=== PATIENT | male | born 1975 | race Caucasian/White ===

== ENCOUNTER 2017-03-29 09:18 | Emergency (ER) | payer MEDICAID ==
[2017-03-29 09:29] VITALS: TEMP 98.1; O2SAT 98
[2017-03-29] MEDS ORDERED: NS 1,000 ML IV ONE ×3 (09:45→11:48)
[2017-03-29] MEDS ORDERED: ONDANSETRON DISINTEGRATING 4 MG TAB PO ONE (09:45)
[2017-03-29] MEDS ORDERED: KETOROLAC 15 MG/1 ML SDV IVP ONE (09:46)
[2017-03-29 09:53] LABS: COLOR PALE YELLOW; LEUKOCYTE ESTERASE,URINE NEGATIVE (NEGATIVE); NITRITE,URINE NEGATIVE (NEGATIVE)
[2017-03-29 09:57] LABS: % IMMATURE GRANULYOCYTES 0.3 % (0.0-1.1); ABSOLUTE IMMATURE GRANULOCYTES 0.02 10^3/uL (0.00-0.10); ADD DIFF? NO; ADD MORPH? NO; ADD SCAN? NO; ATYPICAL LYMPHOCYTE FLAG 10 (0-99); FRAGMENT RBC FLAG 0 (0-99); HEMATOCRIT 43.1 % (40.0-51.0); HEMOGLOBIN 15.9 g/dL (13.7-17.5); LEFT SHIFT FLG 0 (0-99); LIPEMIA HEMOLYSIS FLAG 90 (0-99); MEAN CELL HEMOGLOBIN 33.3 pg (27.9-34.1); MEAN CELL HEMOGLOBIN CONCENTR. 36.9 g/dL (32.4-36.7); MEAN CELL VOLUME 90.4 fL (81.5-99.8); MEAN PLATELET VOLUME 10.4 fL (8.7-11.7); PLATELET CLUMPS FLAG 0 (0-99); PLATELET COUNT 208 10^3/uL (150-400); RED BLOOD CELL COUNT 4.77 10^6/uL (4.40-6.38); RED CELL DISTRIBUTION WIDTH 11.3 % (11.5-15.2)
[2017-03-29 09:57] LABS: WBC,URINE NONE SEEN /hpf (0-3)
--- NOTE | 2017-03-29 10:13 | EDPHY ---
H & P Stated Complaint: At [facility] ED yesterday dx'd w/kidney stone;"peeing blood" HPI/ROS: CHIEF COMPLAINT: Right flank pain HISTORY OF PRESENT ILLNESS: Patient complains of 2 days history of right flank pain. This was a sudden onset 2 days ago. It is severe, 10/10 pain. It radiates down the abdomen. It improved 2 days ago when he was at [facility] and diagnosed with a right-sided nephrolithiasis and renal colic. He was discharged home with pain medication and Zofran. He was feeling well until the pain returned yesterday evening. Since then has been constant. It is worse with any kind of movement. No position of comfort. Some nausea. No vomiting. No fevers or chills. No anterior abdominal pain. No urinary complaints. Pain is refractory to the Vicodin Percocet that he has been taking. No other associated complaints or modifying factors. REVIEW OF SYSTEMS: Ten systems reviewed and are negative unless otherwise noted in the HPI PERTINENT MEDICAL HISTORY: Chronic low back pain SOCIAL HISTORY: Smoker. 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 No consolidation, crackles or diminishment. Cardiovascular: Regular rate and rhythm. No murmur. Pulses intact distally. Gastrointestinal: Abdomen is soft and nontender. There is moderate right- sided CVA tenderness. No tympany. No rigidity. No guarding. Back: non-tender, no bony abnormalities Neurological: GCS 15. A&O, nonfocal Skin: Warm and dry, no rash Extremities: Nontender, no pedal edema Psychiatric: Mood and affect normal DIFFERENTIAL DIAGNOSES: Including but not limited to renal colic, renal lithiasis, ureterolithiasis, hydronephrosis, pyelonephritis, UTI, muscular strain, malingering MDM: 9:45 a.m. Right flank pain that has worsened over the past 2 days. He was seen 2 days ago at outside facility with CT scan that revealed a 4 mm stone in the right renal pole. There was minimal prominence of the collecting system. There was no significant hydronephrosis. No ureteral stone. Remainder of the scan was unremarkable. Labs were normal at that facility. This was all reviewed using [employer]. Pain does appear to be consistent with a right renal colic. I have ordered an ultrasound and laboratory studies as well as pain medication IV fluid. 10:15 a.m. Patient currently getting his ultrasound at this time. CBC is unremarkable. UA does reveal some blood microscopically. Patient has had minimal improvement with his morphine and Toradol. I have ordered a 2nd dose of morphine. 10:30 a.m. Notified by RN that the patient has vomited complains of persistent pain. I have ordered IV Zofran and 1 mg of IV Dilaudid. 10:30 a.m. Notified by radiologist Dr. Perez. Ultrasound of the right kidney reveals mild hydronephrosis. No other significant finding noted. 10:50 a.m. Patient reports no improvement of his pain. He is still in apparent discomfort. I have ordered a CT scan for further delineation of the right flank pain. 11:[address] scan as read by me reveals a mild right-sided hydronephrosis. There is a small calculus in the bladder. Official interpretation is pending 11:50 a.m. Notified by radiologist Dr. Fitch. CT scan of the abdomen pelvis reveals 3 mm stone in the right UVJ. Mild hydronephrosis and edema. No other acute findings. 12:00 p.m. I have re-evaluated the patient. He is feeling significantly better at this time. He is resting comfortably with mild nausea. All administer another dose of IV Zofran as well as 1 L of IV fluid. He is comfortable being discharged home. We will do so with a urine strainer and referral to Urology for further care. He is comfortable this plan and he will be discharged home stable condition SUPERVISION: Patient was evaluated in conjunction with the supervising physician. Please see their note for details. Source: Patient, Other (Outside records by [facility]) - Personal History Current Tetanus Diphtheria and Acellular Pertussis (TDAP): Yes - Medical/Surgical History Other PMH: chronic pain - Social History Smoking Status: Current every day smoker Constitutional: Initial Vital Signs Temperature (C) 98.1 F 03/29/17 09:20 Heart Rate 64 03/29/17 09:20 Respiratory Rate 22 H 03/29/17 09:20 Blood Pressure 142/112 H 03/29/17 09:20 O2 Sat (%) 98 03/29/17 09:20 O2 Delivery Mode Room Air Allergies/Adverse Reactions: most antibx Allergy (Uncoded 03/29/17 09:25) Home Medications: Medication Instructions Recorded Hydrocodone/Acetaminophen [Vicodin 1 each PO 03/29/17 5-300 mg Tablet] Ondansetron Odt [Zofran Odt 4 mg 4 mg PO Q6 PRN #12 tab 03/29/17 (*)] oxyCODONE/APAP 5/325 [Percocet 1 tab PO 03/29/17 5/325 (*)] Medical Decision Making - Diagnostics Imaging Results: Imaging Impressions Abdomen/Pelvis Ultrasound 03/29/17 09:45 Impression: Mild right hydronephrosis. Findings discussed with Kaveh Garcia 03/29/2017 at 10:35. - Data Points Laboratory Results: Laboratory Results 03/29/17 09:46 03/29/17 09:46 03/29/17 03/29/17 03/29/17 09:46 09:46 09:20 WBC 7.67 10^3/uL 10^3/uL (3.80-9.50) RBC 4.77 10^6/uL 10^6/uL (4.40-6.38) Hgb 15.9 g/dL g/dL (13.7-17.5) Hct 43.1 % % (40.0-51.0) MCV 90.4 fL fL (81.5-99.8) MCH 33.3 pg pg (27.9-34.1) MCHC 36.9 g/dL H g/dL (32.4-36.7) RDW 11.3 % L % (11.5-15.2) Plt Count 208 10^3/uL 10^3/uL (150-400) MPV 10.4 fL fL (8.7-11.7) Neut % (Auto) 56.7 % % (39.3-74.2) Lymph % (Auto) 33.6 % % (15.0-45.0) [place] % (Auto) 8.0 % % (4.5-13.0) Eos % (Auto) 0.7 % % (0.6-7.6) Baso % (Auto) 0.7 % % (0.3-1.7) Nucleat RBC Rel Count 0.0 % % (0.0-0.2) Absolute Neuts (auto) 4.36 10^3/uL 10^3/uL (1.70-6.50) Absolute Lymphs (auto) 2.58 10^3/uL 10^3/uL (1.00-3.00) Absolute Monos (auto) 0.61 10^3/uL 10^3/uL (0.30-0.80) Absolute Eos (auto) 0.05 10^3/uL 10^3/uL (0.03-0.40) Absolute Basos (auto) 0.05 10^3/uL 10^3/uL (0.02-0.10) Absolute Nucleated RBC 0.00 10^3/uL 10^3/uL (0-0.01) Immature Gran % 0.3 % % (0.0-1.1) Immature Gran # 0.02 10^3/uL 10^3/uL (0.00-0.10) Sodium 134 mEq/L mEq/L (134-144) Potassium 4.0 mEq/L mEq/L (3.5-5.2) Chloride 106 mEq/L mEq/L (97-110) Carbon Dioxide 18 mEq/l L mEq/l (22-31) Anion Gap 10 mEq/L mEq/L (8-16) BUN 13 mg/dL mg/dL (7-23) Creatinine 0.9 mg/dL mg/dL (0.7-1.3) Estimated GFR > 60 Glucose 92 mg/dL mg/dL (70-100) Calcium 9.2 mg/dL mg/dL (8.5-10.4) Total Bilirubin 1.3 mg/dL mg/dL (0.1-1.4) Conjugated Bilirubin 0.2 mg/dL mg/dL (0.0-0.5) Unconjugated Bilirubin 1.1 mg/dL mg/dL (0.0-1.1) AST 23 IU/L IU/L (17-59) ALT 37 IU/L IU/L (21-72) Alkaline Phosphatase 66 IU/L IU/L (38-126) Total Protein 6.2 g/dL L g/dL (6.3-8.2) Albumin 3.9 g/dL g/dL (3.5-5.0) Lipase 116.0 IU/L IU/L (23-300) Urine Color PALE YELLOW Urine Appearance CLEAR Urine pH 6.0 (5.0-7.5) Ur Specific [place] 1.005 (1.002-1.030) Urine Protein NEGATIVE (NEGATIVE) Urine Ketones NEGATIVE (NEGATIVE) Urine Blood 1+ H (NEGATIVE) Urine Nitrate NEGATIVE (NEGATIVE) Urine Bilirubin NEGATIVE (NEGATIVE) Urine Urobilinogen NEGATIVE EU EU (0.2-1.0) Ur Leukocyte Esterase NEGATIVE (NEGATIVE) Urine RBC 3-5 /hpf H /hpf (0-3) Urine WBC NONE SEEN /hpf /hpf (0-3) Ur Epithelial Cells NONE SEEN /lpf /lpf (NONE-1+) Urine Glucose NEGATIVE (NEGATIVE) Medications Given: Discontinued Medications Hydromorphone HCl (Dilaudid) 1 mg IVP EDNOW ONE Stop: 03/29/17 10:33 Last Admin: 03/29/17 10:39 Dose: 1 mg Sodium Chloride (Ns) 1,000 mls @ 0 mls/hr IV ONCE ONE; Wide Open PRN Reason: Protocol Stop: 03/29/17 09:46 Last Admin: 03/29/17 10:06 Dose: 1,000 mls Sodium Chloride (Ns) 1,000 mls @ 0 mls/hr IV ONCE ONE PRN Reason: Wide Open Stop: 03/29/17 11:45 Last Admin: 03/29/17 11:44 Dose: 1,000 mls Ketorolac Tromethamine (Toradol) 15 mg IVP EDNOW ONE Stop: 03/29/17 09:47 Last Admin: 03/29/17 10:05 Dose: 15 mg Ketorolac Tromethamine (Toradol) 15 mg IVP EDNOW ONE Stop: 03/29/17 10:54 Last Admin: 03/29/17 11:14 Dose: 15 mg Morphine Sulfate (Morphine) 6 mg IVP EDNOW ONE Stop: 03/29/17 09:47 Last Admin: 03/29/17 10:06 Dose: 6 mg Morphine Sulfate (Morphine) 4 mg IVP EDNOW ONE Stop: 03/29/17 10:15 Last Admin: 03/29/17 10:24 Dose: 4 mg Ondansetron HCl (Zofran Odt) 4 mg PO EDNOW ONE Stop: 03/29/17 09:46 Last Admin: 03/29/17 10:07 Dose: 4 mg Ondansetron HCl (Zofran) 4 mg IVP EDNOW ONE Stop: 03/29/17 10:33 Last Admin: 03/29/17 10:39 Dose: 4 mg Departure - Departure Disposition: Home, Routine, Self-Care Clinical Impression: Calculus of right kidney, Ureterolithiasis, Renal colic, Microscopic hematuria Condition: Good Instructions: Renal Colic (ED), Ureteral Stones (ED) Additional Instructions: Follow-up with urologist for definitive care. Return here for return of pain, fever, vomiting or difficulty urinating Referrals: NONE *PRIMARY CARE P,. [Primary Care Provider] - As per Instructions Andrea Buckley MD [Medical Doctor] - As per Instructions Prescriptions: Ondansetron Odt [Zofran Odt 4 mg (*)] 4 mg PO Q6 PRN #12 tab PRN Reason: Nausea/Vomiting, Use 1st
[2017-03-29 10:24] LABS: ALANINE AMINOTRANSFERASE 37 IU/L (21-72); ALBUMIN 3.9 g/dL (3.5-5.0); ALKALINE PHOSPHATASE 66 IU/L (38-126); ANION GAP 10 mEq/L (8-16); ASPARTATE AMINOTRANSFERASE 23 IU/L (17-59); BILIRUBIN,TOTAL 1.3 mg/dL (0.1-1.4); BILIRUBIN-CONJUGATED 0.2 mg/dL (0.0-0.5); BILIRUBIN-UNCONJUGATED 1.1 mg/dL (0.0-1.1); CALCIUM 9.2 mg/dL (8.5-10.4); CARBON DIOXIDE 18 mEq/l (22-31); CHLORIDE 106 mEq/L (97-110); CREATININE 0.9 mg/dL (0.7-1.3); GLOMERULAR FILTRATION RATE > 60; GLUCOSE 92 mg/dL (70-100); SODIUM 134 mEq/L (134-144); TOTAL PROTEIN 6.2 g/dL (6.3-8.2)
[2017-03-29 10:25] VITALS: BP 124/81; PULSE 58; RESP 20
[2017-03-29] MEDS ORDERED: ONDANSETRON 4 MG/2 ML VIAL IVP ONE ×2 (10:32→11:56)
[2017-03-29] MEDS ORDERED: HYDROmorphONE/DILAUDID 1 MG/ML SYR IVP ONE ×2 (10:32→10:53)
[2017-03-29] MEDS ORDERED: KETOROLAC 30 MG/1 ML SDV IVP ONE (10:53)
== END 2017-03-29 12:54 | disposition home or self-care (01) ==
DX: N20.2 Calculus of kidney with calculus of ureter (principal); F17.200 Nicotine dependence, unspecified, uncomplicated
CPT/HCPCS: 96374; J1170; J1885; J2405

== ENCOUNTER → 2017-04-03 | Outpatient (CLI) | payer MEDICAID | LOC: FIMAGING 12:54 | PROVIDERS: ATTEND Specialist | DX: Z09 Encounter for follow-up examination after completed treatment for conditions other than malignant neoplasm (principal); Z87.442 Personal history of urinary calculi ==